=== PATIENT | female | born 1960 | race American Indian/Alaskan Native ===

== ENCOUNTER 2017-09-21 14:56 | Outpatient (CLI) | payer BC ==
--- NOTE | 2017-09-22 08:26 | Mammography Report ---
BILATERAL DIGITAL SCREENING MAMMOGRAM with CAD: 09/21/17 14:56:00 CLINICAL: Routine screening. COMPARISON:09/13/14 FINDINGS: The breasts are mostly fatty. Right asymmetries with architectural distortion on the CC view require additional imaging.No suspicious calcifications. The left breast is negative. IMPRESSION: Right asymmetries requiring further workup. BI-RADS CATEGORY: 0 -- Additional Imaging Evaluation Required RECOMMENDATION: Recall for right lateralmedial , rolled CC and spot CC views and right breast ultrasound if needed. ACR BI-RADS MAMMOGRAPHIC CODES: 0 = Needs additional imaging evaluation; 1 = Negative; 2 = Benign; 3 = Probably benign; 4 = Suspicious; 5 = Malignant; 6 = Known biopsy-proven malignancy COMMENT: 1. Dense breast tissue, i.e., adenosis, fibrocystic changes, etc., may obscure an underlying neoplasm. 2. Approximately 10% of cancers are not detected with mammography. 3. A negative mammography report should not delay biopsy if a clinically suspicious mass is present. COMMENT: Patient follow-up letters are generated via our [employer] application.
== END 2017-09-21 14:57 | disposition home or self-care (01) ==
LOC: SPVWC 14:56
PROVIDERS: ATTEND Internal Medicine
DX: Z12.31 Encounter for screening mammogram for malignant neoplasm of breast (principal)
CPT/HCPCS: 77067

== ENCOUNTER 2017-10-28 14:40 | Outpatient (CLI) | payer BC ==
--- NOTE | 2017-10-28 15:20 | Mammography Report ---
RIGHT DIGITAL DIAGNOSTIC MAMMOGRAM : 10/28/17 14:40:00 CLINICAL: Recalled for asymmetries. COMPARISON:09/21/17 screening FINDINGS: Additional mammographic views were performed and are negative. IMPRESSION: Negative Mammogram. BI-RADS CATEGORY: 1 -- Negative RECOMMENDATION: Routine mammographic screening in one year. ACR BI-RADS MAMMOGRAPHIC CODES: 0 = Needs additional imaging evaluation; 1 = Negative; 2 = Benign; 3 = Probably benign; 4 = Suspicious; 5 = Malignant; 6 = Known biopsy-proven malignancy COMMENT: 1. Dense breast tissue, i.e., adenosis, fibrocystic changes, etc., may obscure an underlying neoplasm. 2. Approximately 10% of cancers are not detected with mammography. 3. A negative mammography report should not delay biopsy if a clinically suspicious mass is present. COMMENT: Patient follow-up letters are generated via our [employer] application.
== END 2017-10-28 14:41 | disposition home or self-care (01) ==
LOC: SPVWC 14:40
PROVIDERS: ATTEND Internal Medicine
DX: R92.8 Other abnormal and inconclusive findings on diagnostic imaging of breast (principal)

== ENCOUNTER 2018-11-02 11:10 | Outpatient (CLI) | payer BC ==
--- NOTE | 2018-11-02 14:04 | Mammography Report ---
BILATERAL DIGITAL SCREENING MAMMOGRAM with CAD : 11/02/18 11:10:00 CLINICAL: Routine screening. COMPARISON:09/21/17 FINDINGS: The breasts are heterogeneously dense, which may obscure small masses.Bilateral benign calcifications which are mostly arterial. No mass, architectural distortion or suspicious calcifications. IMPRESSION: No mammographic evidence of malignancy. BI-RADS CATEGORY: 2 -- Benign RECOMMENDATION: Routine mammographic screening in one year. COMMENT: Patient follow-up letters are generated by our [employer] application.
== END 2018-11-02 11:11 | disposition home or self-care (01) ==
LOC: SPVWC 11:10
PROVIDERS: ATTEND Internal Medicine
DX: Z12.31 Encounter for screening mammogram for malignant neoplasm of breast (principal); I11.0 Hypertensive heart disease with heart failure; I50.9 Heart failure, unspecified
CPT/HCPCS: 77067

== ENCOUNTER 2020-10-29 14:12 | Outpatient (CLI) | payer BC ==
--- NOTE | 2020-10-29 14:57 | Mammography Report ---
DIGITAL SCREENING MAMMOGRAM WITH CAD, 10/29/2020 CLINICAL INFORMATION / INDICATION: Routine screening mammography. SCREENING MAMMO TECHNIQUE: Digital bilateral 2D mammography was obtained in the craniocaudal and mediolateral obliqu e projections. This examination was interpreted with the benefit of Computer-Aided Detection analysis . COMPARISON: 09/13/2014 through 11/02/2018. FINDINGS: Breast Density: There are scattered areas of fibroglandular density. No dominant mass, suspicious calcifications, or architectural distortion in either breast. There are benign-appearing calcifications bilaterally, including mild breast arterial calcifications. No new abnormality is seen. IMPRESSION: No mammographic evidence of malignancy. Follow up recommendation: Routine yearly BI-RADS Category 2: Benign. A "normal" or negative report should not discourage follow up or biopsy of a clinically significant f inding. A written summary of these findings will be mailed to the patient. The patient will be entered into a mammography reporting system which will generate a reminder letter for the patient's next appointmen t at the appropriate interval. The [employer] recommends yearly mammograms starting at age 40 and continuing as l jessica as a woman is in good health. Breast MRI is recommended for women with an approximate 20-25% or greater lifetime risk of breast cancer, including women with a strong family history of breast or ova cristo cancer or who have been treated for Hodgkin's disease. Signer Name: Jv Condon MD Signed: 10/29/2020 2:52 PM Workstation Name: [id number]
== END 2020-10-29 14:13 | disposition home or self-care (01) ==
LOC: SPVWC 14:12
PROVIDERS: ATTEND Internal Medicine
DX: Z12.31 Encounter for screening mammogram for malignant neoplasm of breast (principal); N64.89 Other specified disorders of breast
CPT/HCPCS: 77067

== ENCOUNTER 2021-09-21 11:51 | Emergency (ER) | payer BC ==
[2021-09-21] MEDS ORDERED: KETOROLAC 30 MG/1 ML INJ IM ONE (13:11)
[2021-09-21] MEDS ORDERED: dexAMETHasone 20 MG/5 ML VIAL IM ONE (13:11)
--- NOTE | 2021-09-21 13:30 | Emergency Department Report ---
ED Back Pain/Injury HPI - General Chief Complaint: Back Pain/Injury Stated Complaint: PAIN IN LEG AND BACK Time Seen by Provider: 09/21/21 13:09 Source: patient Limitations: Physical Limitation - History of Present Illness Initial Comments: Patient 61-year-old female history of obesity and hypertension and chronic low back pain who presents for low back pain radiating to right lower extremity and hip x3 days. Patient denies new fall injury or trauma. She got a steroid shot 3 months ago however this shot has worn off. Patient is followed by orthopedic surgery Dr. [facility]. Patient arrived today via POV uses cane for ambulation. There is been no change in ambulation there is been no decrease or loss of bowel or bladder function. Patient denies numbness or tingling. No paralysis. Pain is in usual location and intensity. Patient requesting pain medication at this time. Has follow-up with orthopedics in 2 days. MD Complaint: back pain - Related Data Home Medications Medication Instructions Recorded Confirmed Last Taken Aspirin 325 mg PO QDAY 08/16/13 08/16/13 Unknown Clopidogrel Bisulfate [Clopidogrel] 75 mg PO DAILY 08/16/13 08/16/13 Unknown Furosemide 40 mg PO DAILY 08/16/13 08/16/13 Unknown Pravastatin [Pravachol] 20 mg PO QHS 08/16/13 08/16/13 Unknown glipiZIDE [Glipizide] 10 mg PO DAILY 08/16/13 08/16/13 Unknown lisinopriL [Zestril] 10 mg PO QDAY 08/16/13 08/16/13 Unknown metFORMIN [Glucophage] 1,000 mg PO BID 08/16/13 08/16/13 Unknown Previous Rx's Medication Instructions Recorded Last Taken Type Metoprolol [Lopressor TAB] 12.5 mg PO DAILY #30 tablet 08/17/13 Unknown Rx Pantoprazole [Protonix] 20 mg PO BID #60 tablet 08/17/13 Unknown Rx Cyclobenzaprine [Flexeril] 10 mg PO BID PRN #20 tablet 05/21/18 Unknown Rx Menthol/Camphor [[place] 1 applicatio TP QID PRN #1 tube 05/21/18 Unknown Rx Ointment] Naproxen 500 mg PO BID PRN #30 tablet 05/21/18 Unknown Rx Acetaminophen/Codeine [Tylenol 1 tab PO Q6H PRN #12 tab 09/21/21 Unknown Rx /Codeine # 3 tab] Capsaicin 0.075% [Zostrix Hp 1 applicatio TP Q6H PRN #1 tube 09/21/21 Unknown Rx 0.075%] Allergies Allergy/AdvReac Type Severity Reaction Status Date / Time No Known Allergies Allergy Unverified 08/16/13 11:01 ED Review of Systems ROS: Stated complaint: PAIN IN LEG AND BACK Other details as noted in HPI Constitutional: denies: chills, fever Eyes: denies: eye pain, eye discharge, vision change ENT: denies: ear pain, throat pain Respiratory: denies: cough, shortness of breath, wheezing Cardiovascular: denies: chest pain, palpitations Endocrine: no symptoms reported Gastrointestinal: denies: abdominal pain, nausea, diarrhea Genitourinary: denies: urgency, dysuria, discharge Musculoskeletal: arthralgia, myalgia (Right lower back pain and right lower hip pain), other Skin: denies: rash, lesions Neurological: denies: headache, weakness, paresthesias Psychiatric: denies: anxiety, depression Hematological/Lymphatic: denies: easy bleeding, easy bruising ED Past Medical Hx - Past Medical History Previous Medical History?: Yes Hx Hypertension: Yes Hx Heart Attack/AMI: No Hx Congestive Heart Failure: Yes Hx Diabetes: Yes Hx Deep Vein Thrombosis: No Hx Pulmonary Embolism: No Hx Liver Disease: No Hx Renal Disease: No Hx Sickle Cell Disease: No Hx Arthritis: No Hx Seizures: No Hx Kidney Stones: No Hx Asthma: No Hx COPD: No Hx Tuberculosis: No Hx Dementia: No Hx HIV: No Additional medical history: CAD - Surgical History Past Surgical History?: Yes Hx Coronary Stent: Yes Hx Open Heart Surgery: No Hx Pacemaker: No Hx Internal Defibrillator: No Hx Cholecystectomy: No Hx Appendectomy: No Hx Breast Surgery: No - Social History Smoking Status: Never Smoker Substance Use Type: None - Medications Home Medications: Home Medications Medication Instructions Recorded Confirmed Last Taken Type Aspirin 325 mg PO QDAY 08/16/13 08/16/13 Unknown History Clopidogrel Bisulfate [Clopidogrel] 75 mg PO DAILY 08/16/13 08/16/13 Unknown History Furosemide 40 mg PO DAILY 08/16/13 08/16/13 Unknown History Pravastatin [Pravachol] 20 mg PO QHS 08/16/13 08/16/13 Unknown History glipiZIDE [Glipizide] 10 mg PO DAILY 08/16/13 08/16/13 Unknown History lisinopriL [Zestril] 10 mg PO QDAY 08/16/13 08/16/13 Unknown History metFORMIN [Glucophage] 1,000 mg PO BID 08/16/13 08/16/13 Unknown History Metoprolol [Lopressor TAB] 12.5 mg PO DAILY #30 tablet 08/17/13 Unknown Rx Pantoprazole [Protonix] 20 mg PO BID #60 tablet 08/17/13 Unknown Rx Cyclobenzaprine [Flexeril] 10 mg PO BID PRN #20 tablet 05/21/18 Unknown Rx Menthol/Camphor [[place] 1 applicatio TP QID PRN #1 tube 05/21/18 Unknown Rx Ointment] Naproxen 500 mg PO BID PRN #30 tablet 05/21/18 Unknown Rx Acetaminophen/Codeine [Tylenol 1 tab PO Q6H PRN #12 tab 09/21/21 Unknown Rx /Codeine # 3 tab] Capsaicin 0.075% [Zostrix Hp 1 applicatio TP Q6H PRN #1 tube 09/21/21 Unknown Rx 0.075%] ED Physical Exam - General Limitations: Physical Limitation General appearance: alert, in no apparent distress - Head Head exam: Present: normocephalic, normal inspection - Eye Eye exam: Present: normal appearance, EOMI Pupils: Present: normal accommodation - ENT ENT exam: Present: normal orophraynx, mucous membranes moist - Neck Neck exam: Present: normal inspection, full ROM. Absent: tenderness - Respiratory Respiratory exam: Present: normal lung sounds bilaterally. Absent: respiratory distress, wheezes - Cardiovascular Cardiovascular Exam: Present: regular rate, normal rhythm, normal heart sounds. Absent: systolic murmur, diastolic murmur, rubs, gallop - GI/Abdominal GI/Abdominal exam: Present: soft, normal bowel sounds. Absent: distended, tenderness - Rectal Rectal exam: Present: deferred - Extremities Exam Extremities exam: Present: normal inspection, full ROM, normal capillary refill. Absent: tenderness - Expanded Lower Extremity Exam Right Hip exam: Present: full ROM. Absent: tenderness, swelling, abrasion, laceration, ecchymosis, deformity, crepidus, dislocation, erythema, external rotation, internal rotation, shortening Upper Leg exam: Present: full ROM. Absent: tenderness Knee exam: Present: full ROM. Absent: tenderness Lower Leg exam: Present: full ROM. Absent: tenderness Ankle exam: Present: full ROM. Absent: tenderness Foot/Toe exam: Present: full ROM. Absent: tenderness Neuro vascular tendon exam: Absent: pulse deficit, motor deficit, sensory deficit, tendon deficit Gait: Positive: observed and limited by pain (Ambulates with cane to baseline per patient) - Back Exam Back exam: Present: normal inspection, full ROM. Absent: muscle spasm, paraspinal tenderness, vertebral tenderness - Expanded Back Exam Expanded Back exam: Absent: saddle anesthesia Back exam: Positive Straight Leg Raise: Right, Negative Straight Leg Raising: Left - Neurological Exam Neurological exam: Present: alert, oriented X3, CN II-XII intact, reflexes normal. Absent: motor sensory deficit - Expanded Neurological Exam Expanded Patient oriented to: Present: person, place, time Speech: Present: fluid speech Motor strength exam: RUE: 5, LUE: 5, RLE: 5, LLE: 5 DTR: knee (R): 1+, knee (L): 1+ Best Eye Response ([place]): (4) open spontaneously Best Motor Response ([place]): (6) obeys commands Best Verbal Response ([place]): (5) oriented Dusty Total: 15 - Psychiatric Psychiatric exam: Present: normal affect, normal mood - Skin Skin exam: Present: warm, dry, intact, normal color. Absent: rash ED Course Vital Signs 09/21/21 12:00 Temperature 97.5 F L Pulse Rate 65 Respiratory 18 Rate Blood Pressure 183/83 O2 Sat by Pulse 100 Oximetry ED Medical Decision Making - Medical Decision Making Is acute on chronic low back pain. Pain is improved with medications given in ED. Plan DC to home. Follow-up primary care doctor in 2 to 3 days. Follow-up with current orthopedic doctor as scheduled in 2 days. Return to emergency department should symptoms worsen. Patient verbalized agreement understanding of discharge plan. Patient DC'd home in stable condition at this time. Critical care attestation.: If time is entered above; I have spent that time in minutes in the direct care of this critically ill patient, excluding procedure time. ED Disposition Clinical Impression: Arthralgia Qualifiers: Joint pain location: hip Laterality: right Qualified Code(s): M25.551 - Pain in right hip Chronic back pain Qualifiers: Back pain location: low back pain Back pain laterality: right Sciatica presence: with sciatica Sciatica laterality: sciatica of right side Qualified Code(s): M54.41 - Lumbago with sciatica, right side; G89.29 - Other chronic pain Chronic hip pain Qualifiers: Laterality: right Qualified Code(s): M25.551 - Pain in right hip; G89.29 - Other chronic pain Disposition: HOME / SELF CARE / HOMELESS Is pt being admited?: No Does the pt Need Aspirin: No Condition: Stable Instructions: Chronic Pain (ED), Hip Pain, Chronic Back Pain Additional Instructions: Take medications as prescribed, moist heat therapy as directed, back and hip exercises as directed, follow-up with orthopedic doctor in 2 days as scheduled. Follow-up with your primary care doctor. Return to emergency department should symptoms worsen. Prescriptions: Acetaminophen/Codeine [Tylenol /Codeine # 3 tab] 1 tab PO Q6H PRN #12 tab PRN Reason: pain Capsaicin 0.075% [Zostrix Hp 0.075%] 1 applicatio TP Q6H PRN #1 tube PRN Reason: pain Referrals: CHA STOVALL MD [Staff Physician] - 3-5 Days ZORAN GALLEGO MD [Staff Physician] - 3-5 Days Forms: Work/School Release Form(ED) Time of Disposition: 13:36
[2021-09-21 14:35] VITALS: BP 129/80
== END 2021-09-21 14:50 | disposition home or self-care (01) ==
LOC: ED 11:51
DX: M25.50 Pain in unspecified joint (principal); M54.50 Low back pain, unspecified; M25.559 Pain in unspecified hip; I10 Essential (primary) hypertension; E11.9 Type 2 diabetes mellitus without complications; Z98.890 Other specified postprocedural states; Z79.899 Other long term (current) drug therapy
CPT/HCPCS: 96372; 99282; J1100; J1885

== ENCOUNTER 2021-10-04 11:56 | Emergency (ER) | payer BC ==
[2021-10-04] MEDS ORDERED: KETOROLAC 60 MG/2 ML INJ IM ONE (17:13)
--- NOTE | 2021-10-04 17:28 | Emergency Department Report ---
ED General Adult HPI - General Chief complaint: Medical Clearance Stated complaint: MUSCLE SPASM Time Seen by Provider: 10/04/21 17:00 Source: patient Mode of arrival: Wheelchair Limitations: Physical Limitation - History of Present Illness Initial comments: 61 yo F with history of chronic back and bilateral leg pain that is been treated by her PCP and neurologist with gabapentin and tramdol with some improvement who now present with muscle. This episode of pain is worsen in the last couple of days. No fall or trauma reported. Pt is morbidily obese. Pain is radiating to her bilateral posterior thigh. No other modifying or associated factors reported. Severity scale (0 -10): 8 - Related Data Home Medications Medication Instructions Recorded Confirmed Last Taken Aspirin 325 mg PO QDAY 08/16/13 08/16/13 Unknown Clopidogrel Bisulfate [Clopidogrel] 75 mg PO DAILY 08/16/13 08/16/13 Unknown Furosemide 40 mg PO DAILY 08/16/13 08/16/13 Unknown Pravastatin [Pravachol] 20 mg PO QHS 08/16/13 08/16/13 Unknown glipiZIDE [Glipizide] 10 mg PO DAILY 08/16/13 08/16/13 Unknown lisinopriL [Zestril] 10 mg PO QDAY 08/16/13 08/16/13 Unknown metFORMIN [Glucophage] 1,000 mg PO BID 08/16/13 08/16/13 Unknown Previous Rx's Medication Instructions Recorded Last Taken Type Metoprolol [Lopressor TAB] 12.5 mg PO DAILY #30 tablet 08/17/13 Unknown Rx Pantoprazole [Protonix] 20 mg PO BID #60 tablet 08/17/13 Unknown Rx Cyclobenzaprine [Flexeril] 10 mg PO BID PRN #20 tablet 05/21/18 Unknown Rx Menthol/Camphor [[place] 1 applicatio TP QID PRN #1 tube 05/21/18 Unknown Rx Ointment] Naproxen 500 mg PO BID PRN #30 tablet 05/21/18 Unknown Rx Acetaminophen/Codeine [Tylenol 1 tab PO Q6H PRN #12 tab 09/21/21 Unknown Rx /Codeine # 3 tab] Capsaicin 0.075% [Zostrix Hp 1 applicatio TP Q6H PRN #1 tube 09/21/21 Unknown Rx 0.075%] predniSONE [Deltasone] 40 mg PO QDAY 5 Days #10 tab NS 10/04/21 Unknown Rx Allergies Allergy/AdvReac Type Severity Reaction Status Date / Time No Known Allergies Allergy Unverified 08/16/13 11:01 ED Review of Systems ROS: Stated complaint: MUSCLE SPASM Other details as noted in HPI Comment: All other systems reviewed and negative Musculoskeletal: back pain, myalgia ED Past Medical Hx - Past Medical History Previous Medical History?: Yes Hx Hypertension: Yes Hx Heart Attack/AMI: No Hx Congestive Heart Failure: Yes Hx Diabetes: Yes Hx Deep Vein Thrombosis: No Hx Pulmonary Embolism: No Hx Liver Disease: No Hx Renal Disease: No Hx Sickle Cell Disease: No Hx Arthritis: No Hx Seizures: No Hx Kidney Stones: No Hx Asthma: No Hx COPD: No Hx Tuberculosis: No Hx Dementia: No Hx HIV: No Additional medical history: CAD - Surgical History Past Surgical History?: Yes Hx Coronary Stent: Yes Hx Open Heart Surgery: No Hx Pacemaker: No Hx Internal Defibrillator: No Hx Cholecystectomy: No Hx Appendectomy: No Hx Breast Surgery: No - Social History Smoking Status: Never Smoker Substance Use Type: None - Medications Home Medications: Home Medications Medication Instructions Recorded Confirmed Last Taken Type Aspirin 325 mg PO QDAY 08/16/13 08/16/13 Unknown History Clopidogrel Bisulfate [Clopidogrel] 75 mg PO DAILY 08/16/13 08/16/13 Unknown History Furosemide 40 mg PO DAILY 08/16/13 08/16/13 Unknown History Pravastatin [Pravachol] 20 mg PO QHS 08/16/13 08/16/13 Unknown History glipiZIDE [Glipizide] 10 mg PO DAILY 08/16/13 08/16/13 Unknown History lisinopriL [Zestril] 10 mg PO QDAY 08/16/13 08/16/13 Unknown History metFORMIN [Glucophage] 1,000 mg PO BID 08/16/13 08/16/13 Unknown History Metoprolol [Lopressor TAB] 12.5 mg PO DAILY #30 tablet 08/17/13 Unknown Rx Pantoprazole [Protonix] 20 mg PO BID #60 tablet 08/17/13 Unknown Rx Cyclobenzaprine [Flexeril] 10 mg PO BID PRN #20 tablet 05/21/18 Unknown Rx Menthol/Camphor [[place] 1 applicatio TP QID PRN #1 tube 05/21/18 Unknown Rx Ointment] Naproxen 500 mg PO BID PRN #30 tablet 05/21/18 Unknown Rx Acetaminophen/Codeine [Tylenol 1 tab PO Q6H PRN #12 tab 09/21/21 Unknown Rx /Codeine # 3 tab] Capsaicin 0.075% [Zostrix Hp 1 applicatio TP Q6H PRN #1 tube 09/21/21 Unknown Rx 0.075%] predniSONE [Deltasone] 40 mg PO QDAY 5 Days #10 tab NS 10/04/21 Unknown Rx ED Physical Exam - General Limitations: Physical Limitation General appearance: alert, in no apparent distress - Head Head exam: Present: normal inspection - Eye Eye exam: Present: normal appearance Pupils: Present: normal accommodation - ENT ENT exam: Present: normal exam, normal orophraynx - Neck Neck exam: Present: normal inspection, tenderness, full ROM - Respiratory Respiratory exam: Present: normal lung sounds bilaterally. Absent: respiratory distress, accessory muscle use - Cardiovascular Cardiovascular Exam: Present: regular rate, normal rhythm, normal heart sounds - GI/Abdominal GI/Abdominal exam: Present: soft, normal bowel sounds. Absent: distended, tenderness - Extremities Exam Extremities exam: Present: normal inspection. Absent: tenderness - Back Exam Back exam: Present: muscle spasm, paraspinal tenderness - Neurological Exam Neurological exam: Present: alert, oriented X3 - Psychiatric Psychiatric exam: Present: normal affect, normal mood - Skin Skin exam: Present: warm, normal color ED Course Vital Signs 10/04/21 17:17 Respiratory 16 Rate - Reevaluation(s) Reevaluation #1: 10/04/21 17:29 here with chronic back pain -- radiating from the back to both side of her thigh-- this is likely sciatica -- so will go ahead and give Toradol 60 mg IM x 1 and Valium 2 mg PO for muscle relaxant and d/c home on Prednisone and flexeril with close follow up with her PCP who was planning MRI for further evaluation. Critical care attestation.: If time is entered above; I have spent that time in minutes in the direct care of this critically ill patient, excluding procedure time. ED Disposition Clinical Impression: Morbid obesity with BMI of 60.0-69.9, adult Sciatica Qualifiers: Laterality: bilateral Qualified Code(s): M54.31 - Sciatica, right side; M54.32 - Sciatica, left side Disposition: 01 HOME / SELF CARE / HOMELESS Is pt being admited?: No Does the pt Need Aspirin: No Condition: Stable Instructions: Neuropathic Pain, BMI for Adults, Sciatica Rehab-SportsMed Additional Instructions: Take your pain medication and muscle relaxant and prednisone to help your pain Call and keep your appointment with your doctor for the planned MRI for further evaluation and treatment of your pain Please do not hesitate to call or return to ED if your symptoms worsen Prescriptions: predniSONE [Deltasone] 40 mg PO QDAY 5 Days #10 tab NS Referrals: MINERVA RHODES MD [Referring] - 3-5 Days Time of Disposition: 17:36
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
== END 2021-10-04 18:34 | disposition home or self-care (01) ==
LOC: ED 11:56
DX: M54.32 Sciatica, left side (principal); M54.31 Sciatica, right side; E66.01 Morbid (severe) obesity due to excess calories; Z68.44 Body mass index [BMI] 60.0-69.9, adult; I11.0 Hypertensive heart disease with heart failure; I50.9 Heart failure, unspecified; E11.9 Type 2 diabetes mellitus without complications; I25.10 Atherosclerotic heart disease of native coronary artery without angina pectoris; Z98.890 Other specified postprocedural states
CPT/HCPCS: 71101; 73502; 96372; 99283; J1885